=== PATIENT | female | born 1960 | race Caucasian/White ===

== ENCOUNTER 2017-04-10 10:30 | Inpatient (IN) | payer OTHER ==
[2017-04-10] MEDS ORDERED: SODIUM CHLORIDE 1,000 ML IV STA (10:58)
[2017-04-10] MEDS ORDERED: morphine CARPU-JECT 4 MG/1 ML DISP.SYRIN IVPUSH ONE ×2 (10:58→12:36)
[2017-04-10] MEDS ORDERED: ONDANSETRON 4 MG/2 ML VIAL IVPUSH ONE (10:58)
--- NOTE | 2017-04-10 10:58 | PDOC ---
History of Present Illness <Lukas Bustamante - Last Filed: 04/10/17 12:26> - General History Source: Patient Exam Limitations: No Limitations - History of Present Illness Initial Comments: 04/10/17 11:10 The patient is a 56-year-old female with a significant past medical history of HLD, and presents to the emergency department with abdominal pain for 7 days. She reports the abdominal pain is diffuse but more severe in the right upper quadrant. She states the pain worsened today, and is exacerbated when eating. She denies any family PHMx of gallbladder issues. The patient denies chest pain, shortness of breath, headache and dizziness. The patient denies fever, chills, nausea, vomit, diarrhea and constipation. The patient denies dysuria, frequency, urgency and hematuria. Allergies: NKDA Past Surgical History: abdominal hernia repair Social History: Social ETOH use. Denies smoking, drug use. PCP: Dr. Rajesh Jay <Mendy Dc - Last Filed: 04/10/17 13:28> - General Chief Complaint: Pain Stated Complaint: PAIN Time Seen by Provider: 04/10/17 10:57 Past History - Past Medical History Anemia: No Asthma: Yes Cancer: No Cardiac Disorders: No CVA: No COPD: No CHF: No Dementia: No Diabetes: No GI Disorders: No Disorders: No HTN: No Hypercholesterolemia: Yes Liver Disease: No Seizures: No Thyroid Disease: No - Surgical History Abdominal Surgery: Yes (HERNIA) - Immunization History Immunization Up to Date: Yes - Psycho/Social/Smoking Cessation Hx Anxiety: No Suicidal Ideation: No Smoking History: Never smoked Have you smoked in the past 12 months: Yes Number of Cigarettes Smoked Daily: 0 Cigars Per Day: 0 Hx Alcohol Use: Yes (SOCIAL) Drug/Substance Use Hx: No Substance Use Type: None <Lukas Bustamante - Last Filed: 04/10/17 12:26> <Mendy Dc - Last Filed: 04/10/17 13:28> - Past Medical History Allergies/Adverse Reactions: Allergies Allergy/AdvReac Type Severity Reaction Status Date / Time No Known Allergies Allergy Unverified 04/10/17 10:35 Home Medications: Ambulatory Orders NK [No Known Home Medication] 04/10/17 Review of Systems - Review of Systems Able to Perform ROS?: Yes Comments:: 04/10/17 11:10 GENERAL/CONSTITUTIONAL: No fever or chills. No weakness. HEAD, EYES, EARS, NOSE AND THROAT: No change in vision. No ear pain or discharge. No sore throat. CARDIOVASCULAR: No chest pain or shortness of breath. RESPIRATORY: No cough, wheezing, or hemoptysis. GASTROINTESTINAL: (+) Abdominal pain. No nausea, vomiting, diarrhea or constipation. GENITOURINARY: No dysuria, frequency, or change in urination. MUSCULOSKELETAL: No joint or muscle swelling or pain. No neck or back pain. SKIN: No rash NEUROLOGIC: No headache, vertigo, loss of consciousness, or change in strength/ sensation. ENDOCRINE: No increased thirst. No abnormal weight change. HEMATOLOGIC/LYMPHATIC: No anemia, easy bleeding, or history of blood clots. ALLERGIC/IMMUNOLOGIC: No hives or skin allergy. <Mendy Dc - Last Filed: 04/10/17 13:28> *Physical Exam - Vital Signs Last Vital Signs Temp Pulse Resp BP Pulse Ox 98.3 F 59 L 20 169/81 99 04/10/17 10:31 04/10/17 10:31 04/10/17 10:31 04/10/17 10:31 04/10/17 10:31 <Lukas Bustamante - Last Filed: 04/10/17 12:26> - Vital Signs Last Vital Signs Temp Pulse Resp BP Pulse Ox 98.3 F 59 L 20 169/81 99 04/10/17 10:31 04/10/17 10:31 04/10/17 10:31 04/10/17 10:31 04/10/17 10:31 - Physical Exam Comments: 04/10/17 11:10 GENERAL: Awake, alert, and fully oriented, in no acute distress HEAD: No signs of trauma EYES: PERRLA, EOMI, sclera anicteric, conjunctiva clear ENT: Auricles normal inspection, hearing grossly normal, nares patent, oropharynx clear without exudates. Moist mucosa NECK: Normal ROM, supple, no lymphadenopathy, JVD, or masses LUNGS: Breath sounds equal, clear to auscultation bilaterally. No wheezes, and no crackles HEART: Regular rate and rhythm, normal S1 and S2, no murmurs, rubs or gallops ABDOMEN: (+) RUQ ttp. Soft, normoactive bowel sounds. No guarding, no rebound. No masses EXTREMITIES: Normal range of motion, no edema. No clubbing or cyanosis. No cords, erythema, or tenderness NEUROLOGICAL: Cranial nerves II through XII grossly intact. Normal speech, normal gait SKIN: Warm, Dry, normal turgor, no rashes or lesions noted. <Mendy Dc - Last Filed: 04/10/17 13:28> ED Treatment Course - LABORATORY CBC & Chemistry Diagram: 04/10/17 10:58 04/10/17 10:58 <Lukas Bustamante - Last Filed: 04/10/17 12:26> - LABORATORY CBC & Chemistry Diagram: 04/10/17 10:58 04/10/17 10:58 - RADIOLOGY Radiograph Interpretation: 04/10/17 12:35 Gallbladder US IMPRESSION: Fatty enlarged liver Gallstones with mild gallbladder wall thickening and pericholecystic fluid with slight dilatation of common duct. The sonographic findings are compatible with acute cholecystitis. Clinical confirmation suggested. Reported By: Hardik Stevenson MD Reviewed by: Dr. Lukas Bustamante <Mendy Dc - Last Filed: 04/10/17 13:28> Medical Decision Making - Medical Decision Making 04/10/17 13:28 Dr. Katrin Norton called back and spoke to Dr. Bustamante. Dr. Owen Ambrose called back and spoke to Dr. Bustamante. <Mendy Dc - Last Filed: 04/10/17 13:28> *DC/Admit/Observation/Transfer - Discharge Dispostion Admit: Yes - Attestations Physician Attestion: 04/10/17 10:58 I, Dr. Lukas Bustamante, attest that this document has been prepared under my direction and personally reviewed by me in its entirety. I further attest, that it accurately reflects all work, treatment, procedures and medical decision -making performed by me. <Lukas Bustamante - Last Filed: 04/10/17 12:26> - Attestations Scribe Attestion: 04/10/17 11:11 Documentation prepared by Mendy Dc, acting as medical office assistant instructor for Lukas Bustamante DO. <Mendy Dc - Last Filed: 04/10/17 13:28> Diagnosis at time of Disposition: Acute cholecystitis due to biliary calculus - Discharge Dispostion Condition at time of disposition: Improved - Referrals
[2017-04-10 11:03] LABS: BASOPHIL 0.8 % (0-2.0); EOSINOPHIL 2.6 % (0-4.5); MCH 29.4 pg (25.7-33.7); MCHC 33.3 g/dl (32.0-36.0); MEAN CELL VOLUME 88.3 fl (80-96); MEAN PLT VOLUME 7.1 fl (7.5-11.1); NEUTROPHILS 64.7 % (42.8-82.8); PLATELET COUNT 276 K/MM3 (134-434); RDW 13.4 % (11.6-15.6); WHITE BLOOD COUNT 11.2 K/mm3 (4.0-10.0)
[2017-04-10] MEDS ORDERED: ONDANSETRON 4 MG/2 ML VIAL ONE ×2 (11:09→14:20)
[2017-04-10] MEDS ORDERED: morphine CARPU-JECT 4 MG/1 ML DISP.SYRIN ONE ×2 (11:09→12:43)
[2017-04-10 11:26] LABS: ALK PHOS 81 U/L (45-117); ANION GAP 8 (8-16); BILIRUBIN,TOTAL 0.5 mg/dL (0.2-1.0); CO2 28 mmol/L (21-32); CREATININE 0.7 mg/dL (0.55-1.02); GLUCOSE,RANDOM 110 mg/dL (74-106); SGOT/AST 19 U/L (15-37); SGPT/ALT 29 U/L (12-78); TOT PROT 8.5 g/dl (6.4-8.2)
[2017-04-10] MEDS ORDERED: METRONIDAZOLE 500 MG PREMIXED 100 ML IVPB ONE ×2 (12:25→12:27)
[2017-04-10] MEDS ORDERED: LEVOFLOXACIN 750 MG IVPB 150 ML IVPB ONE ×2 (12:25→12:27)
[2017-04-10 12:33] LABS: URINE APPEARANCE CLEAR; URINE BILIRUBIN NEGATIVE (NEGATIVE); URINE BLOOD 2+ (NEGATIVE); URINE COLOR STRAW; URINE GLUCOSE (UA) NEGATIVE (NEGATIVE); URINE KETONE NEGATIVE (NEGATIVE); URINE LEUK ESTERASE NEGATIVE (NEGATIVE); URINE NITRITE NEGATIVE (NEGATIVE); URINE PROTEIN NEGATIVE (NEGATIVE); URINE UROBILINOGEN NEGATIVE mg/dL (0.2-1.0)
[2017-04-10 12:35] LABS: URINE MUCUS RARE; URINE RBC 1 /hpf (0-3); URINE WBC <1 /hpf (3-5)
[2017-04-10] MEDS ORDERED: ONDANSETRON 4 MG/2 ML VIAL IVPB ONE (14:16)
[2017-04-10] MEDS ORDERED: HYDROmorphone HCL CARPU-JECT 1 MG/1 ML DISP.SYRIN IVPUSH ONE (14:16)
[2017-04-10] MEDS ORDERED: HYDROmorphone HCL CARPU-JECT 1 MG/1 ML DISP.SYRIN ONE (14:20)
[2017-04-10 15:48] VITALS: BMI 36.1
[2017-04-10] MEDS ORDERED: ACETAMINOPHEN 325 MG TABLET (FP) PO PRN (17:24)
[2017-04-10] MEDS: D5-1/2NS+10 MEQ KCL - 1,000 ML IV SCH (18:03)
[2017-04-10] MEDS: morphine CARPU-JECT 2 MG/1 ML DISP.SYRIN IVPUSH PRN ×2 (18:19→22:01)
--- NOTE | 2017-04-10 20:23 | CONSULT ---
Consult Consult Specialty:: surgery Reason for Consultation:: Abdominal pain - History of Present Illness Chief Complaint: RUQ pain History of Present Illness: 56-year-old female with a significant past medical history of HLD, and presents to the emergency department with abdominal pain for 7 days. She reports the abdominal pain is diffuse but more severe in the right upper quadrant. She states the pain worsened today, and is exacerbated when eating. She denies any. chest pain, shortness of breath, headache and dizziness. The patient denies fever, chills, nausea, vomit, diarrhea and constipation. The patient denies dysuria, frequency, urgency and hematuria. - Alcohol/Substance Use Hx Alcohol Use: Yes (SOCIAL) - Smoking History Smoking history: Never smoked Have you smoked in the past 12 months: Yes Aproximately how many cigarettes per day: 0 Home Medications - Allergies Allergies/Adverse Reactions: Allergies Allergy/AdvReac Type Severity Reaction Status Date / Time No Known Allergies Allergy Unverified 04/10/17 10:35 - Home Medications Home Medications: Ambulatory Orders NK [No Known Home Medication] 04/10/17 Physical Exam Vital Signs: Vital Signs Temperature 98.5 F 04/10/17 19:04 Pulse Rate 55 L 04/10/17 19:04 Respiratory Rate 18 04/10/17 19:04 Blood Pressure 124/69 04/10/17 19:04 O2 Sat by Pulse Oximetry (%) 98 04/10/17 16:49 Imaging - Results Ultrasound: Report Reviewed, Image Reviewed Problem List - Problems (1) Acute cholecystitis due to biliary calculus Code(s): K80.00 - CALCULUS OF GALLBLADDER W ACUTE CHOLECYST W/O OBSTRUCTION Assessment/Plan 56 yr old female with acute cholecystitis Plan for laparoscopic Cholecystectomy tomorrow discussed plan and the risks, complications and alternatives with patient and she is eager to proceed with surgery
[2017-04-11] MEDS: morphine CARPU-JECT 2 MG/1 ML DISP.SYRIN IVPUSH PRN ×2 (02:02→16:28)
[2017-04-11 07:50] LABS: BASOPHIL 0.5 % (0-2.0); EOSINOPHIL 0.1 % (0-4.5); MCH 30.2 pg (25.7-33.7); MCHC 34.5 g/dl (32.0-36.0); MEAN CELL VOLUME 87.5 fl (80-96); MEAN PLT VOLUME 7.2 fl (7.5-11.1); NEUTROPHILS 73.7 % (42.8-82.8); PLATELET COUNT 256 K/MM3 (134-434); RDW 12.9 % (11.6-15.6); WHITE BLOOD COUNT 13.7 K/mm3 (4.0-10.0)
[2017-04-11 07:55] LABS: INR 1.21 (0.82-1.09); PROTHROMBIN TIME (PATIENT) 13.4 SEC (9.98-11.88)
[2017-04-11 08:09] LABS: ALBUMIN 3.3 g/dl (3.4-5.0); ALK PHOS 66 U/L (45-117); ANION GAP 10 (8-16); CALCIUM 8.4 mg/dL (8.5-10.1); CO2 26 mmol/L (21-32); CREATININE 0.6 mg/dL (0.55-1.02); GLUCOSE,RANDOM 139 mg/dL (74-106); SGOT/AST 12 U/L (15-37); SGPT/ALT 22 U/L (12-78); TOT PROT 7.7 g/dl (6.4-8.2)
[2017-04-11] MEDS ORDERED: LEVOFLOXACIN 500 MG IVPB 100 ML IVPB SCH (12:24)
--- NOTE | 2017-04-11 12:31 | HP ---
Admitting History and Physical - Primary Care Physician PCP: Noemi Gunn - Admission Chief Complaint: abdominal pain History of Present Illness: The patient is a 56-year-old female with a significant past medical history of HLD, and presented to the emergency department with abdominal pain for 7 days. She reports the abdominal pain is diffuse but more severe in the right upper quadrant. She states the pain worsened today, and is exacerbated when eating. She denies any family PHMx of gallbladder issues. The patient denies chest pain, shortness of breath, headache and dizziness. The patient denies fever, chills, nausea, vomit, diarrhea and constipation. The patient denies dysuria, frequency, urgency and hematuria. Allergies: NKDA Past Surgical History: abdominal hernia repair Social History: Social ETOH use. Denies smoking, drug use. PCP: Dr. Rajesh Jay Pt found to have acute cholecystitis ---scheduled for OR today. given Abx. Pt seen/ examined / chart reviewed. Pt comfortable denies pain.- says meds help - better denies cp/sob/ denies n/v now History Source: Patient Limitations to Obtaining History: No Limitations - Past Medical History Cardiovascular: Yes: Hyperlipdemia - Smoking History Smoking history: Never smoked Have you smoked in the past 12 months: Yes Aproximately how many cigarettes per day: 0 - Alcohol/Substance Use Hx Alcohol Use: Yes (SOCIAL) Home Medications - Allergies Allergies/Adverse Reactions: Allergies Allergy/AdvReac Type Severity Reaction Status Date / Time No Known Allergies Allergy Unverified 04/10/17 10:35 - Home Medications Home Medications: Ambulatory Orders NK [No Known Home Medication] 04/10/17 Family Disease History - Family Disease History Family History: Unremarkable Review of Systems Unable to obtain ROS, reason: see [place] Physical Examination Vital Signs: Vital Signs Temperature 99.1 F 04/11/17 06:00 Pulse Rate 62 04/11/17 06:00 Respiratory Rate 18 04/11/17 06:00 Blood Pressure 127/68 04/11/17 06:00 O2 Sat by Pulse Oximetry (%) 98 04/10/17 21:00 Constitutional: Yes: No Distress, Calm Eyes: Yes: Conjunctiva Clear HENT: Yes: WNL Neck: Yes: Supple, Trachea Midline, Other (no carotid bruie) Respiratory: Yes: CTA Bilaterally Gastrointestinal: Yes: Soft, Tenderness, Epigastrium (ruq +) Edema: No Neurological: Yes: Alert Psychiatric: Yes: Alert Labs: CBC, BMP 04/11/17 07:00 04/11/17 07:00 Imaging - Results Chest X-ray: Report Reviewed Ultrasound: Report Reviewed EKG: Report Reviewed Problem List - Problems (1) Acute cholecystitis Code(s): K81.0 - ACUTE CHOLECYSTITIS Assessment/Plan Abx fluids pain control dvt prophylaxis for or today medically stable for proposed procedure- low risk will follow discussed with nursing staff.
[2017-04-11] MEDS: D5-1/2NS+10 MEQ KCL - 1,000 ML IV SCH ×2 (13:03→17:40)
[2017-04-11] MEDS ORDERED: HYDROmorphone HCL CARPU-JECT 1 MG/1 ML DISP.SYRIN IVPB PRN (19:41)
--- NOTE | 2017-04-11 19:44 | OP ---
Operative Note - Note: Operative Date: 04/11/17 Pre-Operative Diagnosis: acute cholecystitis Operation: laparoscopic cholecystectomy Findings: acute cholecystitis Post-Operative Diagnosis: Same as Pre-op Surgeon: Owen Ambrose Dye House Wheel Operator: Prunima Rasheed Anesthesia: General Specimens Removed: Gall bladder and stones Estimated Blood Loss (mls): 25 Operative Report Dictated: Yes
[2017-04-11] MEDS ORDERED: DEXTROSE 5%-LACTATED RINGERS 1,000 ML IV SCH (19:45)
[2017-04-11] MEDS ORDERED: LIDOCAINE HCL/PF 2% SDV 5ML VIAL ONE (19:47)
[2017-04-11] MEDS ORDERED: ROCURONIUM BROMIDE 50 MG/5 ML VIAL ONE (19:48)
[2017-04-11] MEDS ORDERED: PROPOFOL 20 ML ONE (19:48)
[2017-04-11] MEDS ORDERED: oxyCODONE HCL 5 MG TABLET PO PRN (19:53)
[2017-04-11] MEDS ORDERED: ceFAZolin SODIUM 1 GM VIAL IVPB ONE (19:53)
[2017-04-11] MEDS ORDERED: ACETAMINOPHEN 325 MG TABLET (FP) PO PRN ×2 (19:53→22:08)
[2017-04-11] MEDS ORDERED: BUPIVACAINE HCL/PF 0.5% (5MG/ML) 10 ML VIAL IJ ONE ×2 (20:22)
[2017-04-11] MEDS ORDERED: DEXAMETHASONE SOD PHOSPHATE 4 MG/1 ML VIAL ONE (20:47)
[2017-04-11] MEDS ORDERED: GLYCOPYRROLATE 0.2 MG/1 ML VIAL ONE ×2 (20:47)
[2017-04-11] MEDS ORDERED: KETOROLAC TROMETHAMINE 30 MG/1 ML VIAL ONE (20:47)
[2017-04-11] MEDS ORDERED: NEOSTIGMINE METHYLSULFATE 0.5 MG/ML - 10 ML MDV ONE (20:47)
[2017-04-11] MEDS ORDERED: ONDANSETRON 4 MG/2 ML VIAL IVPUSH PRN (21:09)
[2017-04-11] MEDS ORDERED: PROMETHAZINE HCL 25 MG/1 ML VIAL IVPUSH PRN (21:09)
--- NOTE | 2017-04-11 21:53 | EKG ---
Test Reason : Blood Pressure : / mmHG Vent. Rate : 054 BPM Atrial Rate : 054 BPM P-R Int : 158 ms QRS Dur : 090 ms QT Int : 480 ms P-R-T Axes : 014 060 040 degrees QTc Int : 455 ms SINUS BRADYCARDIA OTHERWISE NORMAL ECG WHEN COMPARED WITH ECG OF 20-AUG-2000 20:58, NO SIGNIFICANT CHANGE WAS FOUND Confirmed by ATILIO PAZ MD ([id number]) on 04/11/2017 9:52:36 PM Referred By: Confirmed By:ATILIO PAZ MD
[2017-04-12 08:06] LABS: BASOPHIL 0.2 % (0-2.0); MCH 29.7 pg (25.7-33.7); MCHC 34.1 g/dl (32.0-36.0); MEAN CELL VOLUME 87.1 fl (80-96); MEAN PLT VOLUME 7.3 fl (7.5-11.1); NEUTROPHILS 76.1 % (42.8-82.8); PLATELET COUNT 234 K/MM3 (134-434); RDW 13.1 % (11.6-15.6); WHITE BLOOD COUNT 11.3 K/mm3 (4.0-10.0)
[2017-04-12 08:34] LABS: ALBUMIN 2.9 g/dl (3.4-5.0); ANION GAP 11 (8-16); CALCIUM 8.3 mg/dL (8.5-10.1); CO2 26 mmol/L (21-32); CREATININE 0.7 mg/dL (0.55-1.02); GLUCOSE,RANDOM 131 mg/dL (74-106); SGOT/AST 59 U/L (15-37); SGPT/ALT 57 U/L (12-78)
[2017-04-12 08:37] LABS: ALK PHOS 57 U/L (45-117); TOT PROT 6.7 g/dl (6.4-8.2)
--- NOTE | 2017-04-12 09:02 | PN ---
Progress Note, Physician History of Present Illness: Feeling better tolerated clears - Current Medication List Current Medications: Active Medications Acetaminophen (Tylenol -) 325 mg PO Q6H PRN PRN Reason: PAIN LEVEL 6-10 Acetaminophen (Tylenol -) 650 mg PO Q6H PRN PRN Reason: FEVER OR PAIN Fentanyl (Sublimaze Injection -) 50 mcg IVPUSH [id number] PRN PRN Reason: PAIN Stop: 04/14/17 21:10 Hydromorphone HCl (Dilaudid Injection -) 1 mg IVPB Q6H PRN PRN Reason: PAIN Last Admin: 04/12/17 01:58 Dose: 1 mg Dextrose/Lactated Ringer's (D5-Lr -) 1,000 mls @ 83 mls/hr IV ASDIR MAULIK Last Admin: 04/11/17 22:25 Dose: 0 mls Levofloxacin (Levaquin 500 Mg Premixed Ivpb -) 100 mls @ 100 mls/hr IVPB DAILY MAULIK Oxycodone HCl (Roxicodone -) 5 mg PO Q6H PRN PRN Reason: PAIN LEVEL 6-10 - Objective Vital Signs: Vital Signs Temperature 99.8 F H 04/12/17 06:00 Pulse Rate 70 04/12/17 06:00 Respiratory Rate 18 04/12/17 06:00 Blood Pressure 105/53 04/12/17 06:00 O2 Sat by Pulse Oximetry (%) 96 04/11/17 22:05 Gastrointestinal: Yes: Other (soft , incisions clean, RADHA 50ccs) Labs: CBC, BMP 04/12/17 07:20 04/12/17 07:20 INR, PTT INR 1.21 (0.82-1.09) H 04/11/17 07:00 Problem List - Problems (1) Acute cholecystitis due to biliary calculus Code(s): K80.00 - CALCULUS OF GALLBLADDER W ACUTE CHOLECYST W/O OBSTRUCTION Assessment/Plan S/p Lap cholecystectomy for acute Cholecystitis Doing well Advance diet Plan to [facility] and may be able to go home today
--- NOTE | 2017-04-12 09:25 | PN ---
Progress Note (short form) - Note Progress Note: Anesthesia postop note 56 y/o F s/p GA for Laparoscopic cholecistectomy POD#1, vss, aaox3, pain fairly well controlled, no complaints. No anesthesia complications.
[2017-04-12] MEDS ORDERED: LEVOFLOXACIN 500 MG IVPB 100 ML IVPB SCH (10:00)
--- NOTE | 2017-04-12 11:39 | OP ---
DATE OF OPERATION: * Edwin THAKKAR/[id number]
--- NOTE | 2017-04-12 12:09 | DS ---
Physical Examination Vital Signs: Vital Signs Temperature 99.8 F H 04/12/17 10:00 Pulse Rate 68 04/12/17 10:00 Respiratory Rate 18 04/12/17 10:00 Blood Pressure 114/59 04/12/17 10:00 O2 Sat by Pulse Oximetry (%) 96 04/11/17 22:05 Labs: CBC, BMP 04/12/17 07:20 04/12/17 07:20 Discharge Summary Reason For Visit: ACUTE CHOLYSTITIS DUE TO BILIATY CALCULUS Current Active Problems Acute cholecystitis (Acute) Acute cholecystitis due to biliary calculus (Acute) Condition: Improved - Instructions Referrals: Rajesh Jay MD [Primary Care Provider] - - Home Medications Comprehensive Discharge Medication List: Ambulatory Orders NK [No Known Home Medication] 04/10/17
[2017-04-12 14:20] VITALS: BP 139/76; PULSE 84; TEMP 99
--- NOTE | 2017-04-13 08:28 | SURG ---
Surgery Dredge Mechanic Note Dredge Mechanic: Purnima Rasheed PA-C Date of Service: 04/11/17 Diagnosis: acute cholecystitis Procedure: laparoscopic cholecystectomy I was present for the entirety of the operative procedure. For further detail, please refer to operative report. Visit type - Case Type Case Type: ED Admission - Emergency Emergency Visit: Yes ED Registration Date: 04/10/17 Care time: The patient presented to the Emergency Department on the above date and was hospitalized for further evaluation of their emergent condition. - New patient This patient is new to me today: Yes Date on this admission: 04/13/17 - Critical Care Critical Care patient: No
--- NOTE | 2017-04-13 15:58 | PATH ---
Surgical Pathology Report Patient Name: KASSIE FLOYD [facility]. Rec. #: [id number] /Age/Gender: 1960 (Age: 56) / F Account: [id number] Location: [address] [place] [address]/[facility] Taken: 04/11/2017 Received: 04/12/2017 Reported: 04/13/2017 Physicians: Edwin Yeager M.D. Specimen(s) Received GALLBLADDER Clinical History Acute cholecystitis Final Diagnosis GALLBLADDER, CHOLECYSTECTOMY: ACUTE HEMORRHAGIC CHOLECYSTITIS AND CHOLELITHIASIS. Electronically Signed Ihsan Mendes M.D. Gross Description Received in formalin, labeled "gallbladder" is a 12.5 x 3.3 x 2.8 cm gallbladder with a 0.2 cm in length portion of cystic duct attached. The outer surface is melendez pink-white multifocal defects and varies from smooth to shaggy. The lumen contains red blood as well as 2 yellow, irregular choleliths measuring 1.7 and 2.7 cm in greatest dimension. The mucosa is hyperemic. The wall of the gallbladder averages 0.3 cm. in thickness. 3D Designer sections are submitted in one cassette. /04/12/201704/12/2017
--- NOTE | 2017-04-14 10:34 | OP ---
DATE OF OPERATION: 04/11/2017 PREOPERATIVE DIAGNOSIS: Acute cholecystitis. POSTOPERATIVE DIAGNOSIS: Acute cholecystitis. PROCEDURE: Laparoscopic cholecystectomy. SURGEON: Owen Ambrose MD DENTAL LABORATORY ASSISTANT: ASHVIN Kelly ANESTHESIA: General. SPECIMENS: Gallbladder. Patient tolerated the procedure well. This is the second dictation for this because the first dictation was somehow sent empty. INDICATIONS: This is a 56-year-old female who was admitted with nausea, vomiting, and abdominal pain and an ultrasound that confirmed a diagnosis of acute cholecystitis. Risks and benefits were discussed with the patient. Alternatives were discussed in regards to management of this acute illness, and she agreed to proceed with laparoscopic cholecystectomy. Medical clearance was obtained from Dr. Gunn. DESCRIPTION OF PROCEDURE: In the operating room, the patient was placed in supine position. After the induction of general anesthesia, she was prepped and draped in the usual sterile fashion. A standard timeout was observed, and the procedure was begun with a standard 1.5-cm periumbilical incision. This was carried down through the subcutaneous tissues in a standard fashion. The Tracie approach was used to enter the peritoneal cavity without complications. A 12-mm port was placed within the peritoneal cavity, and insufflation to a pressure of 15 mmHg was then accomplished. With the laparoscope in place, then secondary trocars were placed; 5-mm ports were introduced, two in the right upper quadrant and one in the epigastrium. At this point, the patient was then positioned in reverse Trendelenburg position, and the operation was continued with identification of the gallbladder and retraction of the gallbladder which proved to be somewhat difficult due to the tension of the gallbladder. The adhesions over the gallbladder were then released, and a decompression needle was used to decompress the gallbladder and aspirate it. At this point, the gallbladder was able to be grasped and retracted superiorly and laterally, exposing the infundibular region of the gallbladder. The overlying peritoneum overlying the hilar structures was then reflected, and the dissection of the hilum of the gallbladder was performed bluntly with a [place] dissector to expose the cystic duct and cystic artery. Care was taken to achieve proper exposure of the triangle of Calot. The cystic duct and bile duct junction was clearly identified, and the common bile duct was identified both proximally and distally to the cystic duct junction. The critical view of safety was thus clearly established, and then, the cystic duct and artery were then doubly ligated with Endoclips and divided with EndoShears. The gallbladder was then dissected off the liver bed with the use of hook dissector. perforation of the gallbladder or injury to the liver bed. The gallbladder was somewhat intrahepatic for making it somewhat technically challenging in its dissection. However, there was minimal bleeding, and upon dissection, the gallbladder was placed in an Endo Catch bag, and final check for hemostasis performed and achieved with cautery. The right upper quadrant was irrigated and suctioned appropriately. A Matt-Woodruff drain was placed in Morison pouch. The gallbladder was then brought out through the 12-mm umbilical port. The ports were removed under direct vision. The fascia at the umbilical port was closed with 0 Vicryl sutures. The skin was closed with 4-0 Monocryl. Dermabond was applied, and the patient was returned to the recovery room awake, alert, in stable condition. She tolerated the procedure well. Edwin [id number]
== END 2017-04-12 14:28 | disposition home or self-care (01) | DRG 419 ==
LOC: JER 10:30 → JERBED 12:27 → J5S 15:53
PROVIDERS: ADMIT Internal Medicine; ATTEND Internal Medicine
PROC: 0FT44ZZ Resection of Gallbladder, Percutaneous Endoscopic Approach (ICD-10-PCS; principal; 2017-04-11 12:00)
DX: K80.00 Calculus of gallbladder with acute cholecystitis without obstruction (principal); E78.5 Hyperlipidemia, unspecified
CPT/HCPCS: 36415; 71010-TC; 76705-TC; 80053; 81003; 81015; 83690; 85025; 85610; 88304-TC; 93005; 93010; 94760; 99285-25

== ENCOUNTER 2017-04-23 17:23 | Inpatient (IN) | payer OTHER ==
[2017-04-23 17:28] VITALS: BMI 35.2
--- NOTE | 2017-04-23 17:46 | PDOC ---
Attending Attestation - [facility] HPI: 04/23/17 18:41 The patient is a 56 year old female, accompanied by family member, with a past medical history of hyperlipidemia and recent cholecystectomy (04/11/[address] Ambrose) who presents to the emergency department with right sided pain for 3 days. The patient is still with drain since her surgery and states that her pain is concentrated to the right side of her abdomen where the drain is. The patient states that she saw her surgeon last week and he stated that he would remove the drain this week. The patient reports associated fever measure to be 104F at home. She denies vomiting and abnormal bowel movements. PCP: Dr. Katrin Uriostegui GENERAL/CONSTITUTIONAL: (+) Fever No chills. No weakness. HEAD, EYES, EARS, NOSE AND THROAT: No change in vision. No ear pain or discharge. No sore throat. GASTROINTESTINAL: (+) Abdominal Pain. No nausea, vomiting, diarrhea or constipation. GENITOURINARY: No dysuria, frequency, or change in urination. CARDIOVASCULAR: No chest pain or shortness of breath. RESPIRATORY: No cough, wheezing, or hemoptysis. MUSCULOSKELETAL: No joint or muscle swelling or pain. No neck or back pain. SKIN: No rash NEUROLOGIC: No headache, vertigo, loss of consciousness, or change in strength/ sensation. ENDOCRINE: No increased thirst. No abnormal weight change. HEMATOLOGIC/LYMPHATIC: No anemia, easy bleeding, or history of blood clots. ALLERGIC/IMMUNOLOGIC: No hives or skin allergy. - Physicial Exam PE: 04/23/17 18:41 GENERAL: Awake, alert, and fully oriented, in no acute distress HEAD: No signs of trauma EYES: PERRLA, EOMI, sclera anicteric, conjunctiva clear ENT: Auricles normal inspection, hearing grossly normal, nares patent, oropharynx clear without exudates. Moist mucosa NECK: Normal ROM, supple, no lymphadenopathy, JVD, or masses LUNGS: Breath sounds equal, clear to auscultation bilaterally. No wheezes, and no crackles HEART: Regular rate and rhythm, normal S1 and S2, no murmurs, rubs or gallops ABDOMEN: (+) Soft, RADHA drain right mid abdomen with surrounding erythema around site, no drainage, bulb empty. Diffuse right abdominal tenderness RUQ>RLQ, normoactive bowel sounds. No guarding, no rebound. No masses EXTREMITIES: Normal range of motion, no edema. No clubbing or cyanosis. No cords, erythema, or tenderness NEUROLOGICAL: Cranial nerves II through XII grossly intact. SKIN: (+)Tactile fever skin, Dry, normal turgor, no rashes or lesions noted. - Medical Decision Making 04/23/17 18:41 Patient s/p cholecystectomy presenting with pain and fever measured at home diffuse ab tender on exam will obtain US to check for retained stones Possible CT if within normal limits EXAM: Right upper quadrant sonogram. IMAGES: 34 EXAM DATE AND TIME: 2017-04-23 18:49:27 REASON FOR EXAM: Pain. Status post cholecystectomy. COMPARISON: None. FINDINGS: 1. The liver measures 17.4 cm in in length and demonstrates a mild increased hepatic echotexture suggestive of hepatic steatosis. 2. Status post cholecystectomy. A drainage tube is evident regional to the gallbladder fossa. 3. Common bile duct measures 7 mm. 4. The right kidney measures 10.9 x 4.7 x 6.4 cm and demonstrates a normal echotexture without stone or hydronephrosis. 5. Normal-caliber abdominal aorta. THIS DOCUMENT HAS BEEN ELECTRONICALLY SIGNED Tin Cramer M.D 04/23/2017 20:58 EST 1. Exam status post cholecystectomy. 2. There is a percutaneous drain coursing through the right lower quadrant abdominal wall and courses through adjacent to the right colon with tip superior to the gallbladder fossa. Stranding /thickening/edema in the gallbladder fossa is seen, and there is adjacent colon (right hepatic flexure)which demonstrates mild wall thickening and is likely secondarily affected by the infectious/inflammatory process. 3. There is also fatty stranding/edema surrounding the right external drainage catheter that 4. There are bibasilar opacities lung bases that likely represent atelectasis, however infiltrate cannot be excluded. 5.. No hydronephrosis. 6. Small amount of pelvic free fluid. THIS DOCUMENT HAS BEEN ELECTRONICALLY SIGNED Tin Cramer M.D 04/24/2017 00:46 EST 00:54: First call to Dr. Uriostegui placed awaiting call back. 00:55 Dr. Uriostegui called into ER. Case discussed. Documentation prepared by Theodore Rm, acting as medical certification specialist for Leanna Yoder MD. <Theodore Rm - Last Filed: 04/24/17 00:56> - Resident Resident Name: Valerio Quinteros - ED Attending Attestation I have performed the following: I have examined & evaluated the patient, The case was reviewed & discussed with the resident, I agree w/resident's findings & plan, Exceptions are as noted - Medical Decision Making 04/24/17 02:03 Called to bedside, patient having reaction to zosyn. Will administer benadryl IV. Will update med allergies. <Leanna Yoder - Last Filed: 04/24/17 02:03>
[2017-04-23] MEDS ORDERED: ONDANSETRON 4 MG/2 ML VIAL IVPB ONE (17:55)
[2017-04-23] MEDS ORDERED: morphine CARPU-JECT 4 MG/1 ML DISP.SYRIN IVPUSH ONE (17:55)
[2017-04-23] MEDS ORDERED: SODIUM CHLORIDE 1,000 ML IV STA (17:55)
[2017-04-23] MEDS ORDERED: morphine CARPU-JECT 4 MG/1 ML DISP.SYRIN ONE (18:16)
[2017-04-23] MEDS ORDERED: ONDANSETRON 4 MG/2 ML VIAL ONE (18:17)
[2017-04-23 18:21] LABS: BASOPHIL 1.2 % (0-2.0); EOSINOPHIL 3.6 % (0-4.5); MCH 29.4 pg (25.7-33.7); MCHC 33.6 g/dl (32.0-36.0); MEAN CELL VOLUME 87.4 fl (80-96); MEAN PLT VOLUME 6.5 fl (7.5-11.1); NEUTROPHILS 70.2 % (42.8-82.8); PLATELET COUNT 468 K/MM3 (134-434); RDW 12.8 % (11.6-15.6); WHITE BLOOD COUNT 11.9 K/mm3 (4.0-10.0)
--- NOTE | 2017-04-23 18:25 | PDOC ---
History of Present Illness - General History Source: Patient Exam Limitations: Language Barrier - History of Present Illness Initial Comments: 04/23/17 18:20 Patient is a 56F with history of asthma, hld, and cholecystitis (s/p cholecystectomy on 04/[address] Ambrose, with drain) here today complaining of abdominal pain. Patient reports that she started feeling better for the first few days after the surgery, then the pain started getting worse until she presented to the ED today. The pain is located in the right upper quadrant, and does not radiate anywhere. There is associated nausea and subjective fevers. Patient denies constipation, diarrhea, and dysuria. She states that the only medication she is taking is oxycodone, which isn't helping her pain. She has pills remaining. <Valerio Quinteros - Last Filed: 04/24/17 00:05> <Leanna Yoder - Last Filed: 04/24/17 02:04> - General Chief Complaint: Pain Stated Complaint: PAIN Time Seen by Provider: 04/23/17 17:44 Past History - Past Medical History Anemia: No Asthma: Yes Cancer: No Cardiac Disorders: No CVA: No COPD: No CHF: No Dementia: No Diabetes: No GI Disorders: No Disorders: No HTN: No Hypercholesterolemia: Yes Liver Disease: No Seizures: No Thyroid Disease: No - Surgical History Abdominal Surgery: Yes (HERNIA) Cholecystectomy: Yes - Immunization History Immunization Up to Date: Yes - Suicide/Smoking/Psychosocial Hx Smoking History: Never smoked Have you smoked in the past 12 months: Yes Number of Cigarettes Smoked Daily: 0 Cigars Per Day: 0 Hx Alcohol Use: No Drug/Substance Use Hx: No Substance Use Type: None <Valerio Quinteros - Last Filed: 04/24/17 00:05> <Leanna Yoder - Last Filed: 04/24/17 02:04> - Past Medical History Allergies/Adverse Reactions: Allergies Allergy/AdvReac Type Severity Reaction Status Date / Time piperacillin sodium Allergy Intermediate Hives Verified 04/24/17 02:04 [From Zosyn] tazobactam sodium Allergy Intermediate Hives Verified 04/24/17 02:04 [From Zosyn] Home Medications: Ambulatory Orders Oxycodone HCl [Roxicodone -] 5 mg PO Q6H PRN #20 tablet MDD 3 04/12/17 Review of Systems - Review of Systems Comments:: 04/23/17 18:23 GENERAL/CONSTITUTIONAL: Positive for fevers and chills. HEAD, EYES, EARS, NOSE AND THROAT: No change in vision. No sore throat. CARDIOVASCULAR: No chest pain or shortness of breath RESPIRATORY: No cough, wheezing, or hemoptysis. GASTROINTESTINAL: Positive for nausea. Negative for vomiting, diarrhea or constipation. GENITOURINARY: No dysuria, frequency, or change in urination. SKIN: No rash NEUROLOGIC: No headache, vertigo, loss of consciousness, or change in strength/ sensation. HEMATOLOGIC/LYMPHATIC: No anemia, easy bleeding, or history of blood clots. ALLERGIC/IMMUNOLOGIC: No hives or skin allergy. <Valerio Quinteros - Last Filed: 04/24/17 00:05> *Physical Exam - Vital Signs Last Vital Signs Temp Pulse Resp BP Pulse Ox 98.8 F 108 H 20 135/84 97 04/23/17 17:24 04/23/17 17:24 04/23/17 17:24 04/23/17 17:24 04/23/17 17:24 - Physical Exam Comments: 04/23/17 18:24 GENERAL: Awake, alert, and fully oriented, in moderate distress HEAD: No signs of trauma, normocephalic, atraumatic EYES: PERRLA, EOMI, sclera anicteric, conjunctiva clear ENT: Auricles normal inspection, hearing grossly normal, nares patent, oropharynx clear without exudates. Moist mucosa LUNGS: No distress, speaks full sentences, clear to auscultation bilaterally HEART: Regular rate and rhythm, normal S1 and S2, no murmurs, rubs or gallops, peripheral pulses normal and equal bilaterally. ABDOMEN: Tender in right upper quadrant. 3 well healing surgical wounds. 1 surgical wound, site of drain, erythematous and tender. No guarding, no rebound. EXTREMITIES: Normal inspection, Normal range of motion, no edema. No clubbing or cyanosis. NEUROLOGICAL: Cranial nerves II through XII grossly intact. Normal speech, no focal sensorimotor deficits SKIN: Warm, Dry, normal turgor, no rashes or lesions noted. <Valerio Quinteros - Last Filed: 04/24/17 00:05> - Vital Signs Last Vital Signs Temp Pulse Resp BP Pulse Ox 98.8 F 108 H 20 135/84 97 04/23/17 17:24 04/23/17 17:24 04/23/17 17:24 04/23/17 17:24 04/23/17 17:24 <Leanna Yoder - Last Filed: 04/24/17 02:04> ED Treatment Course - LABORATORY CBC & Chemistry Diagram: 04/23/17 18:12 04/23/17 18:12 - RADIOLOGY Radiology Studies Ordered: Category Date Time Status ABDOMEN US -LIMITED [US] Stat Ultrasound 04/23/17 18:07 Ordered <Valerio Quinteros - Last Filed: 04/24/17 00:05> - LABORATORY CBC & Chemistry Diagram: 04/23/17 18:12 04/23/17 18:12 - ADDITIONAL ORDERS Additional order review: Laboratory Results 04/23/17 04/23/17 04/23/17 19:57 18:12 18:12 Sodium 136 Potassium 4.2 Chloride 101 Carbon Dioxide 28 Anion Gap 7 L BUN 12 Creatinine 0.7 Creat Clearance w eGFR > 60 Random Glucose 111 H Lactic Acid 1.9 Calcium 8.9 Total Bilirubin 0.4 D AST 18 D ALT 26 D Alkaline Phosphatase 87 D Total Protein 8.6 H D Albumin 3.4 Lipase 87 Urine Color Straw Urine Appearance Clear Urine pH 7.0 Ur Specific [place] 1.015 Urine Protein Negative Urine Glucose (UA) Negative Urine Ketones Negative Urine Blood 2+ H Urine Nitrite Negative Urine Bilirubin Negative Urine Urobilinogen Negative 04/23/17 18:12 RBC 4.26 MCV 87.4 MCHC 33.6 RDW 12.8 MPV 6.5 L D Neutrophils % 70.2 Lymphocytes % 19.3 D Monocytes % 5.7 Eosinophils % 3.6 D Basophils % 1.2 D - Medications Given in the ED: ED Medications Discontinued Medications Generic Name Dose Route Start Last Admin Trade Name Freq PRN Reason Stop Dose Admin Sodium Chloride 1,000 mls @ 1,000 mls/hr 04/23/17 17:55 04/23/17 18:25 Normal Saline - IV 04/23/17 18:54 1,000 mls/hr ASDIR STA Administration Morphine Sulfate 4 mg 04/23/17 17:55 04/23/17 18:25 Morphine Injection - IVPUSH 04/23/17 17:56 4 mg ONCE ONE Administration Ondansetron HCl 4 mg 04/23/17 17:55 04/23/17 18:25 Zofran Injection IVPB 04/23/17 17:56 4 mg ONCE ONE Administration <Leanna Yoder - Last Filed: 04/24/17 02:04> Medical Decision Making - Medical Decision Making 04/23/17 18:25 Patient is a 56F with cholecystectomy on 04/11 here with abdominal pain. Tachycardic, warm to the touch, vital signs otherwise stable and normal. Believe that this is a post op complication. Differential diagnosis includes, but is not limited to: bile leak, soft tissue infection, retained stone. Will evaluate with abdominal labs plus cultures and lactate. Will treat with fluids, pain control and zofran. 04/23/17 21:31 ECG shows normal sinus rhythm. Normal axis. Normal rate. No st elevations. ST inversions in II, aVF, V2 and V3. 04/23/17 21:33 Laboratory Tests 04/23/17 04/23/17 18:12 18:12 WBC 11.9 H Hgb 12.5 Hct 37.2 Plt Count 468 H D Lactic Acid 1.9 CBC shows white count of 11.9, cmp is reassuring, ua negative. 04/23/17 21:37 Ultrasound shows cbd that measures 7mm, no acute findings. Will do CT w/ contrast. 04/24/17 00:[address] Yoder. CT pending, will start abx and admit after CT read. <Valerio Quinteros - Last Filed: 04/24/17 00:05> *DC/Admit/Observation/Transfer <Valerio Quinteros - Last Filed: 04/24/17 00:05> - Discharge Dispostion Admit: Yes <Leanna Yoder - Last Filed: 04/24/17 02:04> Diagnosis at time of Disposition: Intra-abdominal infection Abdominal pain Qualifiers: Abdominal location: unspecified location Qualified Code(s): R10.9 - Unspecified abdominal pain - Discharge Dispostion Condition at time of disposition: Stable - Referrals
[2017-04-23 19:53] LABS: ALBUMIN 3.4 g/dl (3.4-5.0); ALK PHOS 87 U/L (45-117); ANION GAP 7 (8-16); BILIRUBIN,TOTAL 0.4 mg/dL (0.2-1.0); CALCIUM 8.9 mg/dL (8.5-10.1); CO2 28 mmol/L (21-32); CREATININE 0.7 mg/dL (0.55-1.02); GLUCOSE,RANDOM 111 mg/dL (74-106); SGOT/AST 18 U/L (15-37); SGPT/ALT 26 U/L (12-78); TOT PROT 8.6 g/dl (6.4-8.2)
[2017-04-23 20:09] LABS: URINE APPEARANCE CLEAR; URINE BILIRUBIN NEGATIVE (NEGATIVE); URINE BLOOD 2+ (NEGATIVE); URINE COLOR STRAW; URINE GLUCOSE (UA) NEGATIVE (NEGATIVE); URINE KETONE NEGATIVE (NEGATIVE); URINE LEUK ESTERASE TRACE (NEGATIVE); URINE NITRITE NEGATIVE (NEGATIVE); URINE PROTEIN NEGATIVE (NEGATIVE); URINE UROBILINOGEN NEGATIVE mg/dL (0.2-1.0)
[2017-04-24] MEDS ORDERED: PIPERACILLIN/TAZOB 3.375 GM 3.375 GM in DEXTROSE 5%-WATER - 50 ML IVPB ONE (00:52)
[2017-04-24] MEDS ORDERED: VANCOMYCIN 1,000 MG in DEXTROSE 5%-WATER - 250 ML IVPB ONE ×2 (00:53→06:00)
[2017-04-24] MEDS ORDERED: PIPERACILLIN/TAZOB 3.375 GM 50 ML IVPB ONE (01:31)
--- NOTE | 2017-04-24 08:37 | EKG ---
Test Reason : Blood Pressure : / mmHG Vent. Rate : 087 BPM Atrial Rate : 087 BPM P-R Int : 164 ms QRS Dur : 086 ms QT Int : 376 ms P-R-T Axes : 045 057 017 degrees QTc Int : 452 ms NORMAL SINUS RHYTHM T WAVE ABNORMALITY, CONSIDER ANTERIOR ISCHEMIA ABNORMAL ECG Confirmed by MD ERICH, MEGAN ([id number]) on 04/24/2017 8:36:42 AM Referred By: Confirmed By:MEGAN JUNG MD
[2017-04-24] MEDS ORDERED: ACETAMINOPHEN 325 MG TABLET (FP) PO PRN (09:30)
[2017-04-24] MEDS ORDERED: oxyCODONE HCL 5 MG TABLET PO PRN (09:31)
--- NOTE | 2017-04-24 09:32 | HP ---
Admitting History and Physical - Primary Care Physician PCP: Rajesh Jay - Admission Chief Complaint: surgical site infection History of Present Illness: ER HISTORY The patient is a 56 year old female, accompanied by family member, with a past medical history of hyperlipidemia and recent cholecystectomy (04/11/[address] Ambrose) who presents to the emergency department with right sided pain for 3 days. The patient is still with drain since her surgery and states that her pain is concentrated to the right side of her abdomen where the drain is. The patient states that she saw her surgeon last week and he stated that he would remove the drain this week. The patient reports associated fever measure to be 104F at home. She denies vomiting and abnormal bowel movements. Pt examined on the floors S/P lap katelyn- discharged 04/12/17 with RADHA drain. She has a follow up with surgeon tomorrow , but no drainage in drain for last 3 days. Has been experiencing pain rt upper abdomen , had fever last night and came to ER. No nausea , vomiting History Source: Patient Limitations to Obtaining History: No Limitations - Past Medical History Cardiovascular: Yes: Hyperlipdemia - Smoking History Smoking history: Never smoked Have you smoked in the past 12 months: Yes Aproximately how many cigarettes per day: 0 - Alcohol/Substance Use Hx Alcohol Use: No Home Medications - Allergies Allergies/Adverse Reactions: Allergies Allergy/AdvReac Type Severity Reaction Status Date / Time piperacillin sodium Allergy Intermediate Hives Verified 04/24/17 02:04 [From Zosyn] tazobactam sodium Allergy Intermediate Hives Verified 04/24/17 02:04 [From Zosyn] - Home Medications Home Medications: Ambulatory Orders Oxycodone HCl [Roxicodone -] 5 mg PO Q6H PRN #20 tablet MDD 3 04/12/17 Review of Systems - Review of Systems Constitutional: reports: Chills, Fever, Loss of Appetite Gastrointestinal: reports: Abdominal Pain. denies: Diarrhea, Nausea, Rectal Bleeding, Vomiting Physical Examination Vital Signs: Vital Signs Temperature 99.4 F 04/24/17 03:30 Pulse Rate 60 04/24/17 03:30 Respiratory Rate 18 04/24/17 03:30 Blood Pressure 98/52 04/24/17 03:30 O2 Sat by Pulse Oximetry (%) 94 L 04/24/17 03:30 Constitutional: Yes: No Distress, Calm Cardiovascular: Yes: Regular Rate and Rhythm Respiratory: Yes: CTA Bilaterally Gastrointestinal: Yes: Normal Bowel Sounds, Soft, Tenderness, Other (RADHA drain - - minimal yellow fluid , slight erythema around the drain). No: Distention Edema: No Psychiatric: Yes: Alert, Oriented Labs: Laboratory Last Values WBC 11.9 K/mm3 (4.0-10.0) H 04/23/17 18:12 RBC 4.26 M/mm3 (3.60-5.2) 04/23/17 18:12 Hgb 12.5 GM/dL (10.7-15.3) 04/23/17 18:12 Hct 37.2 % (32.4-45.2) 04/23/17 18:12 MCV 87.4 fl (80-96) 04/23/17 18:12 MCH 29.4 pg (25.7-33.7) 04/23/17 18:12 MCHC 33.6 g/dl (32.0-36.0) 04/23/17 18:12 RDW 12.8 % (11.6-15.6) 04/23/17 18:12 Plt Count 468 K/MM3 (134-434) H D 04/23/17 18:12 MPV 6.5 fl (7.5-11.1) L D 04/23/17 18:12 Neutrophils % 70.2 % (42.8-82.8) 04/23/17 18:12 Lymphocytes % 19.3 % (8-40) D 04/23/17 18:12 Monocytes % 5.7 % (3.8-10.2) 04/23/17 18:12 Eosinophils % 3.6 % (0-4.5) D 04/23/17 18:12 Basophils % 1.2 % (0-2.0) D 04/23/17 18:12 Sodium 136 mmol/L (136-145) 04/23/17 18:12 Potassium 4.2 mmol/L (3.5-5.1) 04/23/17 18:12 Chloride 101 mmol/L (98-107) 04/23/17 18:12 Carbon Dioxide 28 mmol/L (21-32) 04/23/17 18:12 Anion Gap 7 (8-16) L 04/23/17 18:12 BUN 12 mg/dL (7-18) 04/23/17 18:12 Creatinine 0.7 mg/dL (0.55-1.02) 04/23/17 18:12 Creat Clearance w eGFR > 60 (>60) 04/23/17 18:12 Random Glucose 111 mg/dL (74-106) H 04/23/17 18:12 Lactic Acid 1.9 mmol/L (0.4-2.0) 04/23/17 18:12 Calcium 8.9 mg/dL (8.5-10.1) 04/23/17 18:12 Total Bilirubin 0.4 mg/dL (0.2-1.0) D 04/23/17 18:12 AST 18 U/L (15-37) D 04/23/17 18:12 ALT 26 U/L (12-78) D 04/23/17 18:12 Alkaline Phosphatase 87 U/L (45-117) D 04/23/17 18:12 Total Protein 8.6 g/dl (6.4-8.2) H D 04/23/17 18:12 Albumin 3.4 g/dl (3.4-5.0) 04/23/17 18:12 Lipase 87 U/L (73-393) 04/23/17 18:12 Urine Color Straw 04/23/17 19:57 Urine Appearance Clear 04/23/17 19:57 Urine pH 7.0 (5.0-8.0) 04/23/17 19:57 Ur Specific [place] 1.015 (1.005-1.025) 04/23/17 19:57 Urine Protein Negative (NEGATIVE) 04/23/17 19:57 Urine Glucose (UA) Negative (NEGATIVE) 04/23/17 19:57 Urine Ketones Negative (NEGATIVE) 04/23/17 19:57 Urine Blood 2+ (NEGATIVE) H 04/23/17 19:57 Urine Nitrite Negative (NEGATIVE) 04/23/17 19:57 Urine Bilirubin Negative (NEGATIVE) 04/23/17 19:57 Urine Urobilinogen Negative mg/dL (0.2-1.0) 04/23/17 19:57 Imaging - Results Cat Scan: Report Reviewed EKG: Image Reviewed (NSR) Problem List - Problems (1) Abdominal pain Code(s): R10.9 - UNSPECIFIED ABDOMINAL PAIN Qualifiers: Abdominal location: unspecified location Qualified Code(s): R10.9 - Unspecified abdominal pain (2) Intra-abdominal infection Code(s): B99.9 - UNSPECIFIED INFECTIOUS DISEASE Assessment/Plan PLAN IV fluids Keep NPO Surgical eval IV antibiotics ID evaluation culture of drainage fluid DVT Prophylaxis-- Lovenox sc pain control
[2017-04-24] MEDS: DEXTROSE 5%-0.45% SALINE 1,000 ML IV SCH (11:33)
[2017-04-24] MEDS: LEVOFLOXACIN 500 MG IVPB 100 ML IVPB SCH (11:34)
[2017-04-24] MEDS: PANTOPRAZOLE 40 MG TABLET (FP) PO SCH (12:30)
[2017-04-24] MEDS: METRONIDAZOLE 500 MG PREMIXED 100 ML IVPB SCH ×2 (12:30→17:08)
--- NOTE | 2017-04-24 15:15 | PN ---
Progress Note (short form) - Note Progress Note: ID Consult dictated Possible surgical site infection S/P cholecystectomy Zosyn allergy Await c/s Empiric levaquin/ flagyl + stat dose vancomycin
--- NOTE | 2017-04-24 16:48 | CONS ---
DATE OF CONSULTATION: 04/24/2017 The patient is a 56-year-old female who is evaluated for sepsis. The patient underwent a laparoscopic cholecystectomy on April 11, 2017. She was discharged home with a surgical drain in place. She was seen as an outpatient and was scheduled to have her drain removed this week. Over the past 3 days, she has had worsening right-sided abdominal pain. She reports fever to 104 at home. She presented to the emergency room, where a CAT scan of the abdomen and pelvis was performed. It showed stranding in the gallbladder fossa as well as inflammatory changes of the colon in the right hepatic flexure. She was also noted to have an elevated white blood cell count. Cultures were obtained. She was empirically treated with Zosyn. After receiving the Zosyn, the patient developed pruritus and it was discontinued. At the present time, she complains of right upper quadrant pain. She denies any vomiting or diarrhea. PAST MEDICAL HISTORY: Positive for hyperlipidemia. Allergies now to ZOSYN. MEDICATIONS: Tylenol, Levaquin, Flagyl, oxycodone, Protonix. SOCIAL HISTORY: She lives at home. She is a nonsmoker, nondrinker. SYSTEMS REVIEW: Neurologic: No loss of consciousness, seizure activity, or focal weakness. Cardiac: Negative chest pain or palpitations. Respiratory: Negative cough or sputum production. Gastrointestinal: As per HPI. Genitourinary: Negative for urinary tract infection. LABORATORY DATA: White count 11.9, hematocrit 37.2, platelet count 468. BUN 12, creatinine 0.7. Blood cultures pending. PHYSICAL EXAMINATION: General: She is awake and alert. She is in no acute distress at the present time. Vital Signs: Temperature 98.9. Blood pressure 100/46. Pulse 53, regular. Respiration 20 per minute. Eyes: Sclerae anicteric. Heart Sounds: S1, S2. Lungs: Clear. Diminished breath sound at the bases. Abdomen: There is a surgical drain in place, right upper quadrant. There was slight surrounding erythema at the drain site. There is right upper quadrant and epigastric tenderness to palpation. No mass, rebound, or rigidity. Extremities: Negative for edema. IMPRESSION: 1. Possible surgical site infection. 2. Status post cholecystectomy. 3. ZOSYN allergy. Await the culture results. Empiric antibiotic coverage for biliary tract as well as skin pathogens with Levaquin, Flagyl, and stat dose vancomycin. Surgical evaluation. Will follow. Thank you for the kind referral. GWYN LEMONS M.D. BRADY/[id number]
[2017-04-25] MEDS: DEXTROSE 5%-0.45% SALINE 1,000 ML IV SCH ×3 (01:47→17:21)
[2017-04-25] MEDS: METRONIDAZOLE 500 MG PREMIXED 100 ML IVPB SCH ×3 (02:43→17:48)
[2017-04-25 07:27] LABS: BASOPHIL 0.8 % (0-2.0); EOSINOPHIL 6.5 % (0-4.5); MCH 29.5 pg (25.7-33.7); MEAN CELL VOLUME 86.8 fl (80-96); MEAN PLT VOLUME 6.5 fl (7.5-11.1); NEUTROPHILS 47.8 % (42.8-82.8); PLATELET COUNT 416 K/MM3 (134-434); WHITE BLOOD COUNT 6.7 K/mm3 (4.0-10.0)
[2017-04-25 08:16] LABS: ALBUMIN 2.7 g/dl (3.4-5.0); ALK PHOS 59 U/L (45-117); ANION GAP 10 (8-16); BILIRUBIN,TOTAL 0.3 mg/dL (0.2-1.0); CALCIUM 8.2 mg/dL (8.5-10.1); CO2 25 mmol/L (21-32); CREATININE 0.6 mg/dL (0.55-1.02); GLUCOSE,RANDOM 126 mg/dL (74-106); SGOT/AST 15 U/L (15-37); SGPT/ALT 21 U/L (12-78); TOT PROT 6.8 g/dl (6.4-8.2)
[2017-04-25] MEDS: ENOXAPARIN NA (PORCINE) 40 MG/0.4 ML DISP.SYRIN SQ SCH (09:09)
[2017-04-25] MEDS: LEVOFLOXACIN 500 MG IVPB 100 ML IVPB SCH (11:23)
[2017-04-25] MEDS: PANTOPRAZOLE 40 MG TABLET (FP) PO SCH (11:27)
--- NOTE | 2017-04-25 11:30 | PN ---
Progress Note (short form) - Note Progress Note: pt seen/ examined chart reviewed. pt feels better denies pain. afebrile Vital Signs Temp 98.5 F 04/25/17 10:22 Pulse 58 L 04/25/17 10:22 Resp 18 04/25/17 10:22 BP 135/73 04/25/17 10:22 Pulse Ox 98 04/24/17 21:00 Intake & Output 04/24/17 04/24/17 04/25/17 11:59 23:59 11:59 Intake Total 1000 1214 1096 Balance 1000 1214 1096 Weight 175 lb 8 oz Intake: IV 1000 664 996 Normal Saline - 1,000 ml 1000 @ 1000 mls/hr IV ASDIR STA Rx#:[id number] D5-1/2Ns - 1,000 ml @ 83 664 996 mls/hr IV ASDIR MAULIK Rx#: [id number] IVPB 0 550 100 Oral 0 0 Other: Voiding Method Toilet Toilet Toilet # Unmeasured Voids Void 1 Bowel Movement No No Weight Measurement Method Standing Scale Active Medications Acetaminophen (Tylenol -) 650 mg PO Q4H PRN PRN Reason: FEVER OR PAIN Enoxaparin Sodium (Lovenox -) 40 mg SQ DAILY [facility] Last Admin: 04/25/17 09:09 Dose: 40 mg Dextrose/Sodium Chloride (D5-1/2ns -) 1,000 mls @ 83 mls/hr IV ASDIR MAULIK Last Admin: 04/25/17 01:47 Dose: 83 mls/hr Metronidazole (Flagyl 500mg Premixed Ivpb -) 100 mls @ 100 mls/hr IVPB Q8H-IV MAULIK Last Admin: 04/25/17 09:09 Dose: 100 mls/hr Levofloxacin (Levaquin 500 Mg Premixed Ivpb -) 100 mls @ 100 mls/hr IVPB DAILY [facility] Last Admin: 04/24/17 11:34 Dose: 100 mls/hr Oxycodone HCl (Roxicodone -) 5 mg PO Q6H PRN PRN Reason: PAIN Pantoprazole Sodium (Protonix -) 40 mg PO DAILY [facility] Last Admin: 04/24/17 12:30 Dose: 40 mg CBC, BMP 04/25/17 06:30 04/25/17 06:30 Physical Examination Constitutional: Yes: No Distress, Calm Cardiovascular: Yes: Regular Rate and Rhythm Respiratory: Yes: CTA Bilaterally Gastrointestinal: Yes: Normal Bowel Sounds, Soft, non tender , Other (RADHA drain - - ight erythema around the drain). No: Distention Edema: No Psychiatric: Yes: Alert, Oriented Imaging - Results Cat Scan: Report Reviewed EKG: Image Reviewed (NSR) Problem List - Problems (1) Abdominal pain Code(s): R10.9 - UNSPECIFIED ABDOMINAL PAIN Qualifiers: Abdominal location: unspecified location Qualified Code(s): R10.9 - Unspecified abdominal pain (2) Intra-abdominal infection Code(s): B99.9 - UNSPECIFIED INFECTIOUS DISEASE Assessment/Plan clinically better continue abx f/u cultures iv fluids will start on clear liquid diet. pain control surgery to follow. will follow.
--- NOTE | 2017-04-25 15:11 | PN ---
Progress Note, Physician History of Present Illness: Feeling better No c/o abdominal pain No N/V No BM Afebrile WBC WNL BC (-) Wound c/s mixed - Current Medication List Current Medications: Active Medications Acetaminophen (Tylenol -) 650 mg PO Q4H PRN PRN Reason: FEVER OR PAIN Enoxaparin Sodium (Lovenox -) 40 mg SQ DAILY [facility] Last Admin: 04/25/17 09:09 Dose: 40 mg Dextrose/Sodium Chloride (D5-1/2ns -) 1,000 mls @ 83 mls/hr IV ASDIR [facility] Last Admin: 04/25/17 09:30 Dose: Not Given Metronidazole (Flagyl 500mg Premixed Ivpb -) 100 mls @ 100 mls/hr IVPB Q8H-IV [facility] Last Admin: 04/25/17 09:09 Dose: 100 mls/hr Levofloxacin (Levaquin 500 Mg Premixed Ivpb -) 100 mls @ 100 mls/hr IVPB DAILY [facility] Last Admin: 04/25/17 11:23 Dose: 100 mls/hr Oxycodone HCl (Roxicodone -) 5 mg PO Q6H PRN PRN Reason: PAIN Pantoprazole Sodium (Protonix -) 40 mg PO DAILY [facility] Last Admin: 04/25/17 11:27 Dose: 40 mg - Objective Vital Signs: Vital Signs Temperature 98.5 F 04/25/17 10:22 Pulse Rate 58 L 04/25/17 10:22 Respiratory Rate 18 04/25/17 10:22 Blood Pressure 135/73 04/25/17 10:22 O2 Sat by Pulse Oximetry (%) 98 04/24/17 21:00 Constitutional: Yes: No Distress Eyes: Yes: Conjunctiva Clear Cardiovascular: Yes: Regular Rate and Rhythm, S1, S2 Respiratory: Yes: CTA Bilaterally Gastrointestinal: Yes: Normal Bowel Sounds, Soft, Other (drain exit site less erythematous). No: Tenderness Edema: No Labs: CBC, BMP 04/25/17 06:30 04/25/17 06:30 Assessment/Plan Possible surgical site infection S/P chlecystectomy Zosyn allergy Await c/s Continue levaquin /flagyl Surgical follow up
[2017-04-26] MEDS: METRONIDAZOLE 500 MG PREMIXED 100 ML IVPB SCH ×2 (02:58→09:56)
[2017-04-26] MEDS: DEXTROSE 5%-0.45% SALINE 1,000 ML IV SCH (07:05)
[2017-04-26] MEDS: PANTOPRAZOLE 40 MG TABLET (FP) PO SCH (09:56)
[2017-04-26] MEDS: ENOXAPARIN NA (PORCINE) 40 MG/0.4 ML DISP.SYRIN SQ SCH (09:57)
--- NOTE | 2017-04-26 10:37 | PN ---
Progress Note, Physician Chief Complaint: see dc summary - Current Medication List Current Medications: Active Medications Acetaminophen (Tylenol -) 650 mg PO Q4H PRN PRN Reason: FEVER OR PAIN Enoxaparin Sodium (Lovenox -) 40 mg SQ DAILY [facility] Last Admin: 04/26/17 09:57 Dose: 40 mg Dextrose/Sodium Chloride (D5-1/2ns -) 1,000 mls @ 83 mls/hr IV ASDIR [facility] Last Admin: 04/26/17 07:05 Dose: 83 mls/hr Metronidazole (Flagyl 500mg Premixed Ivpb -) 100 mls @ 100 mls/hr IVPB Q8H-IV [facility] Last Admin: 04/26/17 09:56 Dose: 100 mls/hr Levofloxacin (Levaquin 500 Mg Premixed Ivpb -) 100 mls @ 100 mls/hr IVPB DAILY [facility] Last Admin: 04/25/17 11:23 Dose: 100 mls/hr Oxycodone HCl (Roxicodone -) 5 mg PO Q6H PRN PRN Reason: PAIN Pantoprazole Sodium (Protonix -) 40 mg PO DAILY [facility] Last Admin: 04/26/17 09:56 Dose: 40 mg - Objective Vital Signs: Vital Signs Temperature 98.1 F 04/26/17 06:00 Pulse Rate 53 L 04/26/17 06:00 Respiratory Rate 18 04/26/17 06:00 Blood Pressure 129/56 04/26/17 06:00 O2 Sat by Pulse Oximetry (%) 97 04/25/17 21:00 Labs: CBC, BMP 04/25/17 06:30 04/25/17 06:30 Problem List - Problems (1) Abdominal pain Code(s): R10.9 - UNSPECIFIED ABDOMINAL PAIN Qualifiers: Abdominal location: unspecified location Qualified Code(s): R10.9 - Unspecified abdominal pain (2) Intra-abdominal infection Code(s): B99.9 - UNSPECIFIED INFECTIOUS DISEASE
[2017-04-26 10:51] VITALS: BP 113/64; PULSE 50; TEMP 97.5
--- NOTE | 2017-04-26 10:53 | DS ---
Physical Examination Vital Signs: Vital Signs Temperature 97.5 F L 04/26/17 09:45 Pulse Rate 50 L 04/26/17 09:45 Respiratory Rate 18 04/26/17 09:45 Blood Pressure 113/64 04/26/17 09:45 O2 Sat by Pulse Oximetry (%) 97 04/25/17 21:00 Constitutional: Yes: No Distress, Calm Cardiovascular: Yes: Regular Rate and Rhythm Respiratory: Yes: CTA Bilaterally Gastrointestinal: Yes: Normal Bowel Sounds, Soft. No: Distention, Tenderness Edema: No Labs: CBC, BMP 04/25/17 06:30 04/25/17 06:30 Discharge Summary Reason For Visit: INTRA-ABDOMINAL INFECTION Current Active Problems Abdominal pain (Acute) Intra-abdominal infection (Acute) Hospital Course: Admitted for infected lap katelyn site-- found to have infected phlegmon post surgery Pt seen by ID Blood coutures negative wound cultures obtained from RADHA drain - multiorganisms Seen by Surgery yesterday and RADHA drain pulled out Pt stable She feels better tolerating diet afebrile Stable for dc on PO levaquin and flagyl for 7 more days Condition: Stable - Instructions Referrals: Rajesh Jay MD [Primary Care Provider] - 2 Weeks Disposition: HOME - Home Medications Comprehensive Discharge Medication List: Ambulatory Orders Oxycodone HCl [Roxicodone -] 5 mg PO Q6H PRN #20 tablet MDD 3 04/12/17 Levofloxacin [Levaquin] 500 mg PO DAILY #7 tablet 04/26/17 Metronidazole [Flagyl -] 500 mg PO Q8H #21 tablet 04/26/17 Pantoprazole Sodium [Protonix] 40 mg PO DAILY #10 tablet. 04/26/17
[2017-04-26] MEDS: LEVOFLOXACIN 500 MG IVPB 100 ML IVPB SCH (11:20)
== END 2017-04-26 13:49 | disposition home or self-care (01) | DRG 863 ==
LOC: JER 17:23 → JERBED 04-24 00:56 → J5S 04-24 05:56
PROVIDERS: ADMIT Internal Medicine; ATTEND Internal Medicine
DX: T81.4XXA Infection following a procedure, initial encounter (principal); Y83.9 Surgical procedure, unspecified as the cause of abnormal reaction of the patient, or of later complication, without mention of misadventure at the time of the procedure; E78.5 Hyperlipidemia, unspecified
CPT/HCPCS: 36415; 74177-TC; 76705-TC; 80053; 81003; 81015; 83605; 83690; 85025; 87040; 87070; 87186; 87205; 93005; 93010; 99283-25